=== PATIENT | male | born 1955 | race Caucasian/White ===

== ENCOUNTER → 2018-04-27 | Outpatient (CLI) | payer OTHER ==
[~2018-04-27] MED LIST: ATORVASTATIN CA40 MG PO; CARDIZEM CD180 MG PO; FLECAINIDE ACET50 M1 PO; NEXIUM40 MG PO; OLMSRTN-AMLDPN1 EAC4 PO; SAVAYSA30 MG PO; TRICOR145 MG PO
== END ==
LOC: M.CT 10:08
DX: I25.10 Atherosclerotic heart disease of native coronary artery without angina pectoris (principal); J98.11 Atelectasis; Z77.090 Contact with and (suspected) exposure to asbestos